=== PATIENT | female | born 1985 ===

== ENCOUNTER 2018-07-04 19:33 | Emergency (ER) | payer OTHER ==
[2018-07-04 19:35] VITALS: BMI 18.9
[2018-07-04 20:58] LABS: SQUAMOUS EPITHIAL < 1 /hpf (0-5); URINE BACTERIA RARE (<OCC); URINE BILIRUBIN NEGATIVE (NEGATIVE); URINE BLOOD SMALL (NEGATIVE); URINE CLARITY CLEAR (Clear); URINE COLOR YELLOW (YELLOW); URINE GLUCOSE (UA) NEG (NEGATIVE); URINE LEUKOCYTE ESTERASE NEG Leu/uL (Negative); URINE PROTEIN NEGATIVE (NEGATIVE); URINE UROBILINOGEN 0.2-1.0 mg/dL (0.2-1.0)
[2018-07-04 21:01] LABS: BASO # 0.1 K/uL (0.0-0.2); BASO % 0.6 % (0.0-2.0); EOS # 0.4 K/uL (0.0-0.7); EOS % 4.1 % (0.0-4.0); HEMOGLOBIN 13.1 g/dL (12.0-16.0); LYMPH # 2.9 K/uL (1.0-4.3); LYMPH % 27.2 % (20.0-40.0); MEAN CORPUSCULAR HEMOGLOBIN 28.9 pg (27.0-31.0); MEAN CORPUSCULAR HGB CONC 33.2 g/dL (33.0-37.0); MEAN PLATELET VOLUME 8.1 fl (7.2-11.7); MONO # 0.8 K/uL (0.0-0.8); MONO % 7.6 % (0.0-10.0); NEUT # 6.5 K/uL (1.8-7.0); NEUT % 60.5 % (50.0-75.0); RBC 4.54 Mil/uL (3.80-5.20); RED CELL DISTRIBUTION WIDTH 13.4 % (11.5-14.5); WHITE BLOOD COUNT 10.8 K/uL (4.8-10.8)
[2018-07-04 21:20] LABS: ALB/GLOB RATIO 1.3 (1.0-2.1); ALBUMIN 4.5 g/dL (3.5-5.0); ALT/SGPT 46 U/L (9-52); AST/SGOT 28 U/L (14-36); BLOOD UREA NITROGEN 25 mg/dl (7-17); CALCIUM 9.6 mg/dL (8.4-10.2); GFR NON-AFRICAN AMERICAN > 60; LIPASE 101 U/L (23-300)
[2018-07-04] MEDS ORDERED: Iohexol 300 100 ML IJ ONE (21:54)
[2018-07-04] MEDS ORDERED: Sodium Chloride 0.9% 50 ML IV ONE (21:55)
--- NOTE | 2018-07-04 22:06 | ED PDOC ---
HPI: Abdomen Time Seen by Provider: 07/04/18 20:13 Chief Complaint (Nursing): GI Problem Chief Complaint (Provider): GI Problem History Per: Patient Additional Complaint(s): Pt. states for the past 8 days she's had constipation and has not had a BM. Reports this has been on going for the last month. States she has to take a weekly laxative to have a BM but tried to not take any meds this week as she does not want to be dependent on them. Also states she feels bloated and has a lot of gas. Further reports she has been evaluated in the past for constipation and an ulcer by Dr. Diaz. Of note, pt became nauseous today and had 2 episodes of non-bloody vomiting. Currently has epigastric abd pain. Denies fever, hematemesis, diarrhea, melena, hematochezia, BRBPR, rectal bleeding, chest pain, SOB. Past Medical History Reviewed: Historical Data, Nursing Documentation, Vital Signs Vital Signs: Last Vital Signs Temp 98.3 F 07/04/18 19:39 Pulse 85 07/04/18 19:39 Resp BP 142/90 07/04/18 19:39 Pulse Ox 100 07/04/18 19:39 - Medical History PMH: Gastritis, Migraine Denies: Chronic Kidney Disease - Surgical History Surgical History: Endoscopy, - Family History Family History: States: No Known Family Hx - Immunization History Hx Tetanus Toxoid Vaccination: No Hx Influenza Vaccination: No Hx Pneumococcal Vaccination: No - Home Medications Home Medications: Ambulatory Orders Medication Instructions Recorded RX: Omeprazole 10 mg PO 12/30/16 Polyethylene Glycol 3350 [Miralax] 17 gm PO DAILY PRN #10 powd.pack 07/04/18 Sod Phos,M-B/Na Phos,Di-Ba [Fleet 1 each RC DAILY PRN #1 enema 07/04/18 Enema] - Allergies Allergies/Adverse Reactions: Allergies Allergy/AdvReac Type Severity Reaction Status Date / Time No Known Allergies Allergy Verified 08/12/16 10:09 Review of Systems ROS Statement: Except As Marked, All Systems Reviewed And Found Negative Gastrointestinal: Positive for: Nausea, Vomiting, Abdominal Pain, Constipation Physical Exam - Physical Exam Appears: Positive for: Well, Non-toxic, No Acute Distress Skin: Positive for: Normal Color, Warm. Negative for: Rash Eye Exam: Positive for: Normal appearance Cardiovascular/Chest: Positive for: Regular Rate, Rhythm Respiratory: Positive for: Normal Breath Sounds. Negative for: Respiratory Distress Gastrointestinal/Abdominal: Positive for: Normal Exam, Bowel Sounds, Soft. Negative for: Tenderness, Mass, Distended, Guarding Neurologic/Psych: Positive for: Alert, Oriented (x3) - Laboratory Results Result Diagrams: 07/04/18 20:53 07/04/18 20:53 Lab Results: Total Bilirubin 0.2 mg/dl (0.2-1.3) 07/04/18 20:53 AST 28 U/L (14-36) 07/04/18 20:53 ALT 46 U/L (9-52) 07/04/18 20:53 Alkaline Phosphatase 59 U/L (38-126) 07/04/18 20:53 Total Protein 7.9 G/DL (6.3-8.2) 07/04/18 20:53 Albumin 4.5 g/dL (3.5-5.0) 07/04/18 20:53 Globulin 3.4 gm/dL (2.2-3.9) 07/04/18 20:53 Albumin/Globulin Ratio 1.3 (1.0-2.1) 07/04/18 20:53 Lipase 101 U/L (23-300) 07/04/18 20:53 Urine Color Yellow (YELLOW) 07/04/18 20:36 Urine Clarity Clear (Clear) 07/04/18 20:36 Urine pH 6.0 (5.0-8.0) 07/04/18 20:36 Ur Specific [place] 1.028 (1.003-1.030) 07/04/18 20:36 Urine Protein Negative mg/dL (NEGATIVE) 07/04/18 20:36 Urine Glucose (UA) Neg mg/dL (NEGATIVE) 07/04/18 20:36 Urine Ketones Negative mg/dL (NEGATIVE) 07/04/18 20:36 Urine Blood Small (NEGATIVE) 07/04/18 20:36 Urine Nitrate Negative (NEGATIVE) 07/04/18 20:36 Urine Bilirubin Negative (NEGATIVE) 07/04/18 20:36 Urine Urobilinogen 0.2-1.0 mg/dL (0.2-1.0) 07/04/18 20:36 Ur Leukocyte Esterase Neg Brenda/uL (Negative) 07/04/18 20:36 Urine RBC (Auto) 3 /hpf (0-3) 07/04/18 20:36 Urine Microscopic WBC 1 /hpf (0-5) 07/04/18 20:36 Ur Squamous Epith Cells < 1 /hpf (0-5) 07/04/18 20:36 Urine Bacteria Rare (<OCC) 07/04/18 20:36 Urine POC: Negative - ECG O2 Sat by Pulse Oximetry: 100 - Progress ED Course And Treament: Labs, pepcid 20mg IV, zofran 4mg IV, obstructive series x-ray ordered. Obstructive series x-rays: FOS, inconclusive for obstructive as reviewed by Dr. Schulz and PA. Decision to do CT abd/pelvis w/ IV contrast made. Pt. informed of plan and agrees. Medical Decision Making Medical Decision Making: Time: 2318 CT abd and pelvis FINDINGS: LUNG BASES: The lung bases appear clear. No pleural effusions are seen. LIVER: There is mild diffuse fatty infiltration of liver. GALLBLADDER AND BILE DUCTS: The gallbladder is decompressed. PANCREAS: Unremarkable. SPLEEN: Unremarkable. ADRENAL GLANDS: Unremarkable. KIDNEYS, URETERS, AND BLADDER: The bladder is decompressed. STOMACH AND BOWEL: Questionable tiny hiatal hernia. No bowel obstruction. No inflammatory process of bowel is identified. APPENDIX: No evidence of acute appendicitis on CT examination. PERITONEUM: No pneumoperitoneum. No ascites. LYMPH NODES: No lymphadenopathy. REPRODUCTIVE: An intrauterine device is present within the uterus. VASCULATURE: No evidence of abdominal aortic aneurysm. BONES: No aggressive appearing osseous lesion. No acute osseous pathology evident. MISCELLANEOUS: There are bilateral breast implants which appear grossly intact. IMPRESSION: 1. There is mild diffuse fatty infiltration of liver. 2. Questionable tiny hiatal hernia. 3. An intrauterine device is present within the uterus. 4. Additional and incidental findings as described, please see comments. Pt. informed of results. Offered laxatives in ED but refused and prefers to take them at home. Disposition - Clinical Impression Clinical Impression: Constipation - Patient ED Disposition Is Patient to be Admitted: No - Disposition Referrals: Peggy Diaz MD [Medical Doctor] - Disposition: Routine/Home Disposition Time: 23:30 Condition: STABLE Additional Instructions: FOLLOW UP WITH DR. DIAZ FOR FURTHER EVALUATION RETURN TO ED IMMEDIATELY IF SYMPTOMS WORSEN JAY WILSON, thank you for letting us take care of you today. Your provider was Serena Schulz MD and you were treated for ABD PAIN,CONSTIPATED. The emergency medical care you received today was directed at your acute symptoms. If you were prescribed any medication, please fill it and take as directed. It may take several days for your symptoms to resolve. Return to the Emergency Department if your symptoms worsen, do not improve, or if you have any other problems. Please contact your doctor or call one of the physicians/clinics you have been referred to that are listed on the Patient Visit Information form that is included in your discharge packet. Bring any paperwork you were given at discharge with you along with any medications you are taking to your follow up visit. Our treatment cannot replace ongoing medical care by a primary care provider outside of the emergency department. Thank you for allowing the [facility] team to be part of your care today. If you had an X-Ray or CT scan: A Radiologist will review the ED reading if any change in treatment is needed we will contact you. If you had a blood, urine, or wound culture: It will take several days for the results, if any change in treatment is needed we will contact you. If you had an STI test: It will take 48 hours for the results. Please call after 1 week if you have not heard back. Prescriptions: Polyethylene Glycol 3350 [Miralax] 17 gm PO DAILY PRN #10 powd.pack PRN Reason: constipation Sod Phos,M-B/Na Phos,Di-Ba [Fleet Enema] 1 each RC DAILY PRN #1 enema PRN Reason: Constipation Instructions: Constipation, Adult (DC) Forms: [employer] (Haitian) Print Language: BOLIVIAN
[2018-07-04 23:49] VITALS: BP 112/79; PULSE 79; RESP 16; TEMP 98.2
--- NOTE | 2018-07-05 10:24 | RAD ---
Date of service: 07/04/2018 PROCEDURE: Radiographs of the chest and abdomen (obstructive series) HISTORY: constipation COMPARISON: No prior. TECHNIQUE: AP radiograph of the chest, with upright and supine radiographs of the abdomen. FINDINGS: CHEST: Lungs: Clear. Cardiovascular: Normal size heart. No pulmonary vascular congestion. No aortic atherosclerotic calcification present Pleura: No pleural fluid. No pneumothorax. Other findings: None. ABDOMEN AND PELVIS: Bowel: Unremarkable bowel gas pattern. No evidence of mechanical obstruction. Free air: None. Bones: Unremarkable. Other findings: Intrauterine device. IMPRESSION: Unremarkable radiographs of chest and abdomen. No evidence of mechanical bowel obstruction.
--- NOTE | 2018-07-05 10:59 | CT ---
Date of service: 07/04/2018 PROCEDURE: CT Abdomen and Pelvis with contrast HISTORY: constipation COMPARISON: None. TECHNIQUE: Contrast dose: 95 mL Omnipaque 300 Radiation dose: Total exam DLP = 216.57 mGy-cm. This CT exam was performed using one or more of the following dose reduction techniques: Automated exposure control, adjustment of the mA and/or kV according to patient size, and/or use of iterative reconstruction technique. FINDINGS: LOWER THORAX: Bilateral breast prostheses. Heart size normal. No focal consolidation or pleural effusion. LIVER: Unremarkable. No gross lesion or ductal dilatation. GALLBLADDER AND BILE DUCTS: Unremarkable. PANCREAS: Unremarkable. No gross lesion or ductal dilatation. SPLEEN: Unremarkable. ADRENALS: Unremarkable. No mass. KIDNEYS AND URETERS: Unremarkable. No hydronephrosis. No solid mass. VASCULATURE: Unremarkable. No aortic aneurysm. No aortic atherosclerotic calcification or mural plaque present. BOWEL: Unremarkable. No obstruction. No gross mural thickening. APPENDIX: Normal appendix. PERITONEUM: Unremarkable. No free fluid. No free air. LYMPH NODES: Unremarkable. No enlarged lymph nodes. BLADDER: Unremarkable. REPRODUCTIVE: Intrauterine device in place. Sub centimeter fundal fibroid. BONES: No acute fracture. OTHER FINDINGS: None. IMPRESSION: Unremarkable contrast enhanced CT of the abdomen and pelvis.
[2018-07-05 23:12] VITALS: O2SAT 100
== END 2018-07-04 23:40 | disposition home or self-care (01) ==
LOC: H.ER 19:33
DX: K59.00 Constipation, unspecified (principal)
CPT/HCPCS: 74022; 74177; 80053; 81003; 81025; 83690; 85025; 96374; 96375; 99284; J2405; Q9967